=== PATIENT | male | born 2000 | race Two or more races ===

== ENCOUNTER 2021-06-27 20:23 | Emergency (ER) | payer OTHER ==
[~2021-06-27] VITALS: Ht 172.7 cm; Wt 93.9 kg
--- NOTE | 2021-06-27 20:41 | PHYS DOC ---
Adult General Chief Complaint Chief Complaint: SEXUALLY TRANSMITTED DISEASE HPI HPI Patient denies any 20-year-old male who presents with a chief complaint of possible STI exposure and wanting treatment. States that his girlfriend was recently diagnosed with gonorrhea, he thinks maybe a week or 2 ago but he has no symptoms but wants to be sure that he does not have it and wants to be treated. Denies any fevers, chest pain, shortness of breath, abdominal pain, nausea, vomiting, dysuria, hematuria, frequency, penile discharge, scrotal pain or genital lesions. Denies any history of STIs. States he feels well but just wants to be sure Review of Systems Review of Systems Review of systems otherwise unremarkable except noted in HPI Physical Exam Physical Exam Constitutional: Well developed, well nourished, no acute distress, non-toxic appearance. [] HENT: Normocephalic, atraumatic, , oropharynx moist, no oral exudates, nose normal. [] Eyes: PERRLA, EOMI, conjunctiva normal, no discharge. [] Cardiovascular:Heart rate regular rhythm, no murmur [] Lungs & Thorax: Bilateral breath sounds clear to auscultation [] Abdomen: soft, no tenderness, no masses, no pulsatile masses : Normal circumcised penis with no obvious genital lesions, swelling or pain. [] Skin: Warm, dry, no erythema, no rash. [] Back: no CVA tenderness. [] Neurologic: Alert and oriented X 3, normal motor function, normal sensory function, no focal deficits noted. [] Psychologic: Affect normal, judgement normal, mood normal. [] EKG EKG [] Radiology/Procedures Radiology/Procedures [] Heart Score C/O Chest Pain: No Risk Factors: Risk Factors: DM, Current or recent (<one month) smoker, HTN, HLP, family history of CAD, obesity. Risk Scores: Risk Factors: DM, Current or recent (<one month) smoker, HTN, HLP, family history of CAD, obesity. Course & Med Decision Making Course & Med Decision Making Patient is a 20-year-old male who presents with a chief complaint of possible STI exposure wanting treatment Vital signs not concerning. Physical exam noted above. Patient treated for gonorrhea and chlamydia per her request, despite having no symptoms. Discussed all findings with patient. Advised the tests for gonorrhea and chlamydia would probably be back in 24 to 48 hours. Advised to follow-up with his primary care physician to discuss ED visit. Advised not to have sex until he gets the results back. Gave return precautions to the ED. Patient grateful, verbalized understanding and agreed with plan of discharge. [] Dragon Disclaimer Dragon Disclaimer This electronic medical record was generated, in whole or in part, using a voice recognition dictation system. Departure Departure: Impression: Primary Impression: Possible exposure to STD Disposition: HOME / SELF CARE / HOMELESS Condition: GOOD Referrals: PCP,UNKNOWN (PCP) DMITRIY AG MD Patient Instructions: Sexually Transmitted Disease, [id number] Additional Instructions: Thank you for coming into the emergency department tonight and allowing us to take care of you. Please read on the attached information above to go back over things we discussed. You are given a treatment in the emergency department for gonorrhea and chlamydia, as well as a urinary tract infection based on your history that she gave. The results for your gonorrhea and Chlamydia should be back in 24 to 48 hours. Your urinalysis should be back tonight, but you stated that you were in a hurry and had to leave and would just like to hear the results when they come in. Please follow-up in the morning with your primary care physician to discuss your ED visit. Please come back with new or concerning symptoms as discussed. HALEY SCHAEFER MD Jun 27, 2021 20:41
[2021-06-27 21:02] VITALS: BP 140/107
[2021-06-27] MEDS: AZITHROMYCIN 250 MG TABLET. PO ONE (21:04)
[2021-06-27] MEDS: cefTRIAXone IM 500 MG VIAL. IM ONE (21:06)
[2021-06-27 21:13] LABS: BILIRUBIN,URINE NEG (NEG); CLARITY,URINE HAZY; COLOR,URINE YELLOW; GLUCOSE,URINE NEG (NEG)
[2021-06-27 21:14] LABS: BACTERIA,URINE 0 /HPF (0-FEW); NITRITE,URINE NEG (NEG); RBC,URINE 0 /HPF (0-2); UROBILINOGEN,URINE 0.2 mg/dL (0.2 mg/dL); WBC,URINE 0 /HPF (0-4)
== END 2021-06-27 21:10 | disposition home or self-care (01) ==
LOC: ER 20:23 → EDSEX 20:23 → ER 21:10
DX: Z20.2 Contact with and (suspected) exposure to infections with a predominantly sexual mode of transmission (principal)
CPT/HCPCS: 36415; 81001; 87491; 87591; 96372; 99283; J0696

== ENCOUNTER 2021-07-26 11:38 | Emergency (ER) | payer OTHER ==
[~2021-07-26] VITALS: Ht 172.7 cm; Wt 95.6 kg
[2021-07-26 11:52] VITALS: BP 148/94
[2021-07-26] MEDS ORDERED: BENZOCAINE/MENTHOL LOZNGE 18'S BOX. PO PRN (12:15)
[2021-07-26] MEDS ORDERED: IBUPROFEN 600 MG TABLET. PO ONE (12:15)
--- NOTE | 2021-07-26 12:26 | PHYS DOC ---
Past History Past Surgical History: No Surgical History (ALY MONTES APRN) Alcohol Use: Occasionally (ALY MONTES APRN) General Adult EDM: Chief Complaint: SORE THROAT HPI: HPI: Patient is a 20-year-old male presents with sore throat and congestion. Denies fever. Patient states he was seen yesterday at urgent care and prescribed a antibiotic along with steroids. Patient states he has taken 1 dose of the antibiotic but not picked up the steroids. "I was just wanting a second opinion and I needed a note for work today". Pain is worse with swallowing. Patient is able to maintain secretions. Denies medical history. (ALY MONTES APRN) Review of Systems: Review of Systems: ROS At least 10 ROS systems have been reviewed and are negative except as documented in the HPI. General: Negative except as outlined in HPI above. Skin: Negative except as outlined in HPI above. HEENT: Negative except as outlined in HPI above. Neck: Negative except as outlined in HPI above. Respiratory: Negative except as outlined in HPI above.. Cardiovascular: Negative except as outlined in HPI above. Abdomen: Negative except as outlined in HPI above. : Negative except as outlined in HPI above. Back/MSK: Negative except as outlined in HPI above. Neuro: Negative except as outlined in HPI above. Psych: Negative except as outlined in HPI above. (ALY MONTES APRN) Current Medications: Current Meds: Current Medications Medications (Trade) Dose Ordered Sig/Ken Start Time Stop Time Status Last Admin Dose Admin Ibuprofen (Motrin) 600 mg 1X ONCE 07/26/21 12:15 07/26/21 12:16 DC Throat Lozenges (Cepacol Sore Throat Lozenge) 1 yun PRN Q2HR PRN 07/26/21 12:15 (ALY MONTES APRN) Allergies: Allergies: Allergies Coded Allergies Type Severity Reaction Last Updated Verified No Known Drug Allergies 06/27/21 No (ALY MONTES APRN) Physical Exam: PE: Constitutional: Well developed, well nourished, no acute distress, non-toxic appearance. [] HENT: Normocephalic, atraumatic, bilateral external ears normal, oropharynx moist, no oral exudates, pharynx red and irritated ,nasal congestion Eyes: PERRLA, EOMI, conjunctiva normal, no discharge. [] Neck: Normal range of motion, no tenderness, supple, no stridor. [] Cardiovascular:Heart rate regular rhythm, no murmur [] Lungs & Thorax: Bilateral breath sounds clear to auscultation [] Abdomen: Bowel sounds normal, soft, no tenderness, no masses, no pulsatile masses. [] Skin: Warm, dry, no erythema, no rash. [] Back: No tenderness, no CVA tenderness. [] Extremities: No tenderness, no cyanosis, no clubbing, ROM intact, no edema. [] Neurologic: Alert and oriented X 3, normal motor function, normal sensory function, no focal deficits noted. [] Psychologic: Affect normal, judgement normal, mood normal. [] (ALY MONTES APRN) Current Patient Data: Vital Signs: Vital Signs Date Time Temp Pulse Resp B/P (MAP) Pulse Ox O2 Delivery O2 Flow Rate FiO2 07/26/21 11:52 98.6 88 16 148/94 (112) 98 Room Air (ALY MONTES APRN) EKG: EKG: [] (ALY MONTES APRN) Radiology/Procedures: Radiology/Procedures: [] (ALY MONTES APRN) Heart Score: C/O Chest Pain: No Risk Factors: Risk Factors: DM, Current or recent (<one month) smoker, HTN, HLP, family history of CAD, obesity. Risk Scores: Score 0 - 3: 2.5% MACE over next 6 weeks - Discharge Home Score 4 - 6: 20.3% MACE over next 6 weeks - Admit for Clinical Observation Score 7 - 10: 72.7% MACE over next 6 weeks - Early Invasive Strategies (ALY MONTES APRN) Course & Med Decision Making: Course & Med Decision Making Pertinent Labs and Imaging studies reviewed. (See chart for details) [] 20-year-old male with sore throat and sinus pressure. Denies fever. No oral exudates. Denies taking anything [id number] to help with symptoms. Rapid strep ordered. Motrin and Cepacl throat lozenges given for pain. Rapid strep is negative. Advised patient to use warm salt water gargles to help with pain. [id number] Mucinex DM along with throat lozenges to help with sore throat and sinus pressure. Motrin and Tylenol for fevers or headache. Follow-up with PCP in the next 2 to 3 days if symptoms do not improve. (ALY MONTES APRN) Course & Med Decision Making I was the Attending physician on the above date of service of this patient. This patient was evaluated, examined, treated, and dispositioned from the emergency department by the mid-level practitioner. Although I was working at the time , no assistance was requested. Electronically signed, Mariusz Correa DO (MARIUSZ CORREA DO) Manda Disclaimer: Manda Disclaimer: This electronic medical record was generated, in whole or in part, using a voice recognition dictation system. (ALY MONTES APRN) Departure Departure: Impression: Primary Impression: Sore throat Additional Impression: Congestion of nasal sinus Disposition: 01 HOME / SELF CARE / HOMELESS Condition: STABLE Referrals: PCP,NO (PCP) Patient Instructions: Sore Throat, [id number] Additional Instructions: Your rapid strep test was negative. Make sure that you are taking the antibiotics and steroids that were prescribed. Use throat lozenges to help with pain. Motrin and Tylenol for headache. Mucinex DM to help with congestion. Follow-up with PCP in the next 2 to 3 days. Return emergency room for worsening symptoms or concerns. EMERGENCY DEPARTMENT GENERAL DISCHARGE INSTRUCTIONS Thank you for coming to [facility] (ED) today and trusting us with you care. We trust that you had a positivie experience in our Emergency Department. If you wish to speak to the department management, you may call the director at [phone]. YOUR FOLLOW UP INSTRUCTIONS ARE FOLLOWS: 1. Do you have a private Doctor? If you do not have a private doctor, please ask for a resource list of physicians or clinics that may be able to assist you with follow up care. 2. The Emergency Physician has interpreted your x-rays. The X-Ray specialist will also review them. If there is a change in the findings, you will be notified in 48 hours when at all possible. 3. A lab test or culture has been done, your results will be reviewed and you will be notified if you need a change in treatment. ADDITIONAL INSTRUCTIONS AND INFORMATION: 1. Your care today has been supervised by a physician who is specially trained in emergency care. Many problems require more than one evaluation for a complete diagnosis and treatment. We recommend that you schedule your follow up appointment as recommended to ensure complete treatment of you illness or injury. If you are unable to obtain follow up care and continue to have a problem, or if your condition worsens, we recommend that you return to the ED. 2. We are not able to safely determine your condition over the phone nor are we able to give sound medical advice over the phone. For these safety reasons, if you call for medical advice we will ask you to come to the ED for further evaluation. 3. If you have any questions regarding these discharge instructions please call the ED at [phone]. SAFETY INFORMATION: In the interest of safety, wellness, and injury prevention; we encourage you to wear your sealbelt, if you smoke; quite smoking, and we encourage family to use a protective helmet for bicycling and other sporting events that present an increased risk for head injury. IF YOUR SYMPTOMS WORSEN OR NEW SYMPTOMS DEVELOP, OR YOU HAVE CONCERNS ABOUT YOUR CONDITION; OR IF YOUR CONDITION WORSENS WHILE YOU ARE WAITING FOR YOUR FOLLOW UP APPOINTMENT; EITHER CONTACT YOUR PRIMARY CARE DOCTOR, THE PHYSICIAN WHOSE NAME AND NUMBER YOU WERE GIVEN, OR RETURN TO THE ED IMMEDIATELY. ALY MONTES APRN Jul 26, 2021 12:26 MARIUSZ CORREA DO Jul 30, 2021 11:52
== END 2021-07-26 12:44 | disposition home or self-care (01) ==
LOC: ER 11:38
DX: J02.9 Acute pharyngitis, unspecified (principal); R09.81 Nasal congestion
CPT/HCPCS: 87070; 87880; 99283

== ENCOUNTER 2022-03-02 01:40 | Emergency (ER) | payer OTHER ==
[~2022-03-02] VITALS: Ht 172.7 cm; Wt 95.6 kg
[2022-03-02 01:40] VITALS: BP 150/90
--- NOTE | 2022-03-02 01:44 | PHYS DOC ---
Past History Past Surgical History: No Surgical History Alcohol Use: Occasionally Adult General HPI HPI Patient is a 21-year-old male in the , who presents with a chief complaint of intermittent thoughts of not wanting to be alive but not sure he has had actual thoughts of suicide. States he has had anxiety and depression in the past. States he is only been in the about a year and just moved here to [place] and spent away from his new baby for little while so was under a lot of stress. States his is moving out shortly which makes him feel better because he does want to be with his and his new child. Denies any alcohol or drug abuse. Review of Systems Review of Systems Review of systems otherwise unremarkable except noted in HPI Allergies Allergies Allergies Coded Allergies Type Severity Reaction Last Updated Verified No Known Drug Allergies 06/27/21 No Physical Exam Physical Exam Constitutional: Well developed, well nourished, no acute distress, non-toxic appearance. [] HENT: Normocephalic, atraumatic, bilateral external ears normal, oropharynx moist, no oral exudates, nose normal. [] Eyes: PERRLA, EOMI, conjunctiva normal, no discharge. [] Neck: Normal range of motion, no tenderness, supple, no stridor. [] Cardiovascular:Heart rate regular rhythm, no murmur [] Lungs & Thorax: Bilateral breath sounds clear to auscultation [] Abdomen: Bowel sounds normal, soft, no tenderness, no masses, no pulsatile masses. [] Skin: Warm, dry, no erythema, no rash. [] Back: No tenderness, no CVA tenderness. [] Extremities: No tenderness, no cyanosis, no clubbing, ROM intact, no edema. [] Neurologic: Alert and oriented X 3, normal motor function, normal sensory function, able to sit, stand and walk without issue, no focal deficits noted. [] Psychologic: Affect normal, judgement normal, mood normal. Thoughts of not wanting to be alive intermittently, and not really wanting to commit suicide and, harm himself or has a plan to do so. Denies any homicidal ideation. Denies any hallucinations of any sort and substance abuse. [] EKG EKG [] Radiology/Procedures Radiology/Procedures [] Heart Score C/O Chest Pain: No Risk Factors: Risk Factors: DM, Current or recent (<one month) smoker, HTN, HLP, family history of CAD, obesity. Risk Scores: Risk Factors: DM, Current or recent (<one month) smoker, HTN, HLP, family history of CAD, obesity. Course & Med Decision Making Course & Med Decision Making Patient is a 21-year-old male who presents with a chief complaint of i ntermittent thoughts of suicide not wanting to be alive Vital signs nonconcerning. Physical exam noted above. Laboratory analysis not concerning. Toxicology not concerning. Psychiatric assessment team liaison talk to patient for a long time and also did some behavioral therapy and discussed coping and grounding mechanisms. Getting numbers for student and resident resource with 24-hour crisis number. Given community resources with guidance Center number as well. Given local free clinics as well. Advised to follow-up with these resources soon as possible. Gave return precautions to the ED. Patient very grateful, verbalized understanding and agreed with plan of discharge and discharge plan. [] Dragon Disclaimer Dragon Disclaimer This electronic medical record was generated, in whole or in part, using a voice recognition dictation system. Departure Departure: Impression: Primary Impression: Anxiety Additional Impressions: Depression Passive suicidal ideations Disposition: 01 HOME / SELF CARE / HOMELESS Condition: STABLE Referrals: PCP,UNKNOWN (PCP) DMITRIY AG MD Patient Instructions: Anxiety and Panic Attacks, Depression, Adult, Suicidal Feelings, How to Help Yourself, Suicide, Helping Someone Who is Suicidal Additional Instructions: Thank you for coming into the emergency department tonight and allowing us to take care of you. Please read the attached information carefully to go over things we discussed. Please be sure to go over the safety plan and use the techniques that our psychiatric assessment team liaison member went over with you. Please go through the community resource packet and email the free online therapy to get your 9 free sessions at the email provided. The guidance Center number is also in the community resource packet with a 24-hour crisis line. Please be sure to discuss your ED visit with your primary care physician and your guidance counselors but also your family as it is good to have as much support by your friends and lower limbs as possible. Please come back to the ED with new or concerning symptoms as we discussed. Problem Qualifiers HALEY SCHAEFER MD March 02, 2022 01:44
[2022-03-02 02:33] LABS: BASO # 0.1 x10^3/uL (0.0-0.2); BASO % 0 % (0-3); EOS % 0 % (0-3); HEMATOCRIT 48.7 % (39.0-53.0); HEMOGLOBIN 16.4 g/dL (13.0-17.5); LYMPH # 3.3 x10^3/uL (1.0-4.8); LYMPH % 23 % (24-48); MEAN CORPUSCULAR HEMOGLOBIN 30 pg (25-35); MEAN CORPUSCULAR HGB CONC 34 g/dL (31-37); MEAN CORPUSCULAR VOLUME 88 fL (79-100); MONO # 0.7 x10^3/uL (0.0-1.1); MONO % 5 % (0-9); NEUT # 10.3 x10^3uL (1.8-7.7); NEUT % 71 % (31-73); PLATELET COUNT 237 x10^3/uL (140-400); RED BLOOD COUNT 5.52 x10^6/uL (4.30-5.70); RED CELL DISTRIBUTION WIDTH 13.6 % (11.5-14.5); WHITE BLOOD COUNT 14.4 x10^3/uL (4.0-11.0)
[2022-03-02 02:39] LABS: BARBITURATES NEG (NEG); BENZODIAZEPINES NEG (NEG); CANNABINOIDS NEG (NEG); COCAINE NEG (NEG); METHADONE NEG (NEG); OPIATES NEG (NEG); PHENCYCLIDINE NEG (NEG)
[2022-03-02 02:41] LABS: AMPHETAMINE/METHAMPHETAMINE NEG (NEG)
[2022-03-02 02:41] LABS: CALCIUM 9.2 mg/dL (8.5-10.1); GFR 92.6; POTASSIUM 3.7 mmol/L (3.5-5.1)
[2022-03-02 02:46] LABS: SALIC 0.7 mg/dL (2.8-20.0)
[2022-03-02 02:47] LABS: ACETAMIN < 2.0 mcg/mL (10-30); ETHANOL < 10 mg/dL (0-10)
== END 2022-03-02 04:27 | disposition home or self-care (01) ==
LOC: EEVIPCON 01:40 → ER 01:40
DX: F41.9 Anxiety disorder, unspecified (principal); F32.9 Major depressive disorder, single episode, unspecified
CPT/HCPCS: 36415; 80048; 80307; 80329; 85025; 99283; G0480